=== PATIENT | female | born 1960 | race Caucasian/White ===

== ENCOUNTER 2017-07-24 11:18 | Emergency (ER) | payer OTHER ==
[2017-07-24 11:36] VITALS: BP 145/75
[2017-07-24] MEDS ORDERED: Ondansetron 4 MG/2 ML SDV IVPUSH ONE (11:52)
[2017-07-24] MEDS ORDERED: Ketorolac 30 MG/ML SDV IVPUSH ONE (11:52)
[2017-07-24] MEDS ORDERED: Sodium Chloride 0.9% 1,000 ML IV ONE (11:52)
--- NOTE | 2017-07-24 11:56 | EDM.PDOC ---
ED HPI GENERAL MEDICAL PROBLEM - General Chief Complaint: Abdominal Pain Stated Complaint: LOW ABDOMINAL PAIN Time Seen by Provider: 07/24/17 11:38 Source of Information: Reports: Patient History Limitations: Reports: No Limitations - History of Present Illness INITIAL COMMENTS - FREE TEXT/NARRATIVE: The patient is a 57-year-old female with a history of prior irritable bowel syndrome and diverticulitis who presents with abdominal pain. She states that it started a couple of days ago. Pain is located in her lower abdomen. It is like sharp pressure. It radiates down into her groin area. It is worse with movement. Better with rest. She's had nausea. No vomiting. Decreased oral intake for the past day or 2 due to nausea and pain. No fever. She did have a bowel movement yesterday that was normal. No dysuria or hematuria. No vaginal discharge. No additional complaint. Took aspirin this morning, no other meds. Has had surgery for ovarian cysts 40 years ago but does still have her ovaries. Bilateral Lower Abdomen Pain Score (Numeric/FACES): 8 - Related Data Allergies Allergy/AdvReac Type Severity Reaction Status Date / Time lidocaine Allergy Swelling Verified 07/24/17 11:24 Home Meds: Home Meds Aspirin [Ecotrin] 325 mg PO DAILY 07/24/17 [History] Ciprofloxacin [Ciprofloxacin HCl] 500 mg PO BID #20 tablet 07/24/17 [Rx] Levothyroxine [Synthroid] 88 mcg PO ACBREAKFAST 07/24/17 [History] Omeprazole 20 mg PO DAILY 07/24/17 [History] Ondansetron [Zofran ODT] 4 mg PO Q6H PRN #15 tab.dis 07/24/17 [Rx] Venlafaxine [Effexor] 75 mg PO DAILY 07/24/17 [History] metroNIDAZOLE [Flagyl] 500 mg PO Q8H #30 tablet 07/24/17 [Rx] oxyCODONE HCl/Acetaminophen [Percocet 5-325 mg Tablet] 1 each PO QID PRN #20 tablet 07/24/17 [Rx] Past Medical History HEENT History: Reports: Impaired Vision Other HEENT History: wears corrective lenses Cardiovascular History: Reports: Hypertension Gastrointestinal History: Reports: Other (See Below) Other Gastrointestinal History: diverticulitis [employer] History: Reports: Other (See Below) Other OB/BYN History: ovarian cyst removal Musculoskeletal History: Reports: Fracture, Osteoarthritis Endocrine/Metabolic History: Reports: Hypothyroidism - Past Surgical History HEENT Surgical History: Reports: None GI Surgical History: Reports: None Musculoskeletal Surgical History: Reports: Other (See Below) Other Musculoskeletal Surgeries/Procedures:: fractured ankle repair Social & Family History - Tobacco Use Smoking Status *Q: Former Smoker Used Tobacco, but Quit: Yes Month Tobacco Last Used: 17 years ago Second Hand Smoke Exposure: No - Caffeine Use Caffeine Use: Reports: Soda - Recreational Drug Use Recreational Drug Use: No ED ROS GENERAL - Review of Systems Review Of Systems: See Below Constitutional: Denies: Fever HEENT: Reports: No Symptoms Respiratory: Denies: Shortness of Breath Cardiovascular: Reports: No Symptoms Endocrine: Reports: No Symptoms GI/Abdominal: Reports: Abdominal Pain : Denies: Dysuria, Flank Pain, Hematuria Musculoskeletal: Reports: No Symptoms Skin: Reports: No Symptoms Neurological: Reports: No Symptoms Psychiatric: Reports: No Symptoms Hematologic/Lymphatic: Reports: No Symptoms ED EXAM, GI/ABD - Physical Exam Exam: See Below Exam Limited By: No Limitations General Appearance: Alert, WD/WN, No Apparent Distress Eyes: Bilateral: Normal Appearance Ears: Normal External Exam Nose: Normal Inspection Throat/Mouth: Normal Inspection, Normal Oropharynx Head: Atraumatic, Normocephalic Neck: Normal Inspection, Supple, Non-Tender, Full Range of Motion Respiratory/Chest: No Respiratory Distress, Lungs Clear, Normal Breath Sounds Cardiovascular: Normal Peripheral Pulses, Regular Rate, Rhythm, No Murmur, Tachycardia GI/Abdominal Exam: Soft, Other (Diffuse lower abdominal tenderness, most in left lower quadrant, no rebound or guarding. No upper abdominal tenderness) Back Exam: No: CVA Tenderness (L), CVA Tenderness (R) Neurological: Alert, Oriented, Normal Cognition Psychiatric: Normal Affect, Normal Mood Skin Exam: Warm, Dry, Intact, Normal Color, No Rash Course - Vital Signs Last Recorded V/S: Last Vital Signs Temp 36.1 C 07/24/17 11:24 Pulse 105 H 07/24/17 11:24 Resp 20 07/24/17 11:24 BP 145/75 H 07/24/17 11:24 Pulse Ox 97 07/24/17 11:24 - Orders/Labs/Meds Orders: Active Orders 24 hr Category Date Time Status Levofloxacin/Dextrose 5%-Water [Levaquin in D5W 750 MG/ Med 07/24/17 13:24 Active 150 ML] 750 mg Premix Bag 1 bag IV ONETIME Sodium Chloride 0.9% [Saline Flush] Med 07/24/17 12:21 Active 10 ml FLUSH ONETIME PRN metroNIDAZOLE/Normal Saline [Flagyl 500 MG in NS 100 ML Med 07/24/17 13:24 Active ] 500 mg Premix Bag 1 bag IV ONETIME Medication Orders Levofloxacin/Dextrose 750 mg/ (Premix) 150 mls @ 100 mls/hr IV ONETIME ONE Stop: 07/24/17 14:53 Last Admin: 07/24/17 13:37 Dose: 100 mls/hr Metronidazole 500 mg/ Premix 100 mls @ 100 mls/hr IV ONETIME ONE Stop: 07/24/17 14:23 Last Admin: 07/24/17 13:37 Dose: 100 mls/hr Sodium Chloride (Saline Flush) 10 ml FLUSH ONETIME PRN PRN Reason: IV FLUSH Last Admin: 07/24/17 12:31 Dose: 10 ml Labs: Laboratory Tests 07/24/17 07/24/17 07/24/17 Range/Units 12:05 12:05 13:36 WBC 14.88 H (3.98-10.04) K/mm3 RBC 4.18 (3.98-5.22) M/mm3 Hgb 12.7 (11.2-15.7) gm/L Hct 37.9 (34.1-44.9) % MCV 90.7 (79.4-94.8) fl MCH 30.4 (25.6-32.2) pg MCHC 33.5 (32.2-35.5) g/dl RDW Std Deviation 43.6 (36.4-46.3) fL Plt Count 346 (182-369) K/mm3 MPV 9.3 L (9.4-12.3) fl Neut % (Auto) 82.4 H (34.0-71.1) % Lymph % (Auto) 9.1 L (19.3-51.7) % [place] % (Auto) 7.9 (4.7-12.5) % Eos % (Auto) 0.3 L (0.7-5.8) Baso % (Auto) 0.1 (0.1-1.2) % Neut # (Auto) 12.28 H (1.56-6.13) K/mm3 Lymph # (Auto) 1.35 (1.18-3.74) K/mm3 [place] # (Auto) 1.17 H (0.24-0.36) K/mm3 Eos # (Auto) 0.04 (0.04-0.36) K/mm3 Baso # (Auto) 0.01 (0.01-0.08) K/mm3 Manual Slide Review Abnormal smear Sodium 137 (136-145) mEq/L Potassium 3.9 (3.5-5.1) mEq/L Chloride 99 (98-107) mEq/L Carbon Dioxide 26 (21-32) mEq/L Anion Gap 15.9 H (5-15) BUN 16 (7-18) mg/dL Creatinine 1.3 H (0.55-1.02) mg/dL Est Cr Clr Drug Dosing 49.30 mL/min Estimated GFR (MDRD) 42 (>60) mL/min BUN/Creatinine Ratio 12.3 L (14-18) Glucose 108 H (74-106) mg/dL Calcium 9.6 (8.5-10.1) mg/dL Total Bilirubin 1.2 H (0.2-1.0) mg/dL AST 15 (15-37) U/L ALT 16 (14-59) U/L Alkaline Phosphatase 81 (46-116) U/L Total Protein 8.2 (6.4-8.2) g/dl Albumin 4.1 (3.4-5.0) g/dl Globulin 4.1 gm/dL Albumin/Globulin Ratio 1.0 (1-2) Lipase 115 (73-393) U/L Urine Color Yellow (Yellow) Urine Appearance Clear (Clear) Urine pH 5.5 (5.0-8.0) Ur Specific [place] 1.010 (1.005-1.030) Urine Protein 1+ H (Negative) Urine Glucose (UA) Negative (Negative) Urine Ketones Negative (Negative) Urine Occult Blood 1+ H (Negative) Urine Nitrite Negative (Negative) Urine Bilirubin Negative (Negative) Urine Urobilinogen 0.2 (0.2-1.0) Ur Leukocyte Esterase Negative (Negative) Urine RBC 0-5 (0-5) /hpf Urine WBC Not seen (0-5) /hpf Ur Epithelial Cells 0-5 (0-5) /hpf Urine Bacteria Few (FEW) /hpf Hyaline Casts 0-5 (0-5) /lpf Urine Mucus Not seen (FEW) /hpf Meds: Medications Generic Name Dose Route Start Last Admin Trade Name Pardeepq PRN Reason Stop Dose Admin Levofloxacin/Dextrose 750 mg/ 150 mls @ 100 mls/hr 07/24/17 13:24 07/24/17 13 :37 Premix IV 07/24/17 14:53 100 mls/hr ONETIME ONE Administration Metronidazole 500 mg/ Premix 100 mls @ 100 mls/hr 07/24/17 13:24 07/24/17 13: 37 IV 07/24/17 14:23 100 mls/hr ONETIME ONE Administration Sodium Chloride 10 ml 07/24/17 12:21 07/24/17 12:31 Saline Flush FLUSH 10 ml ONETIME PRN Administration IV FLUSH Discontinued Medications Generic Name Dose Route Start Last Admin Trade Name Pardeepq PRN Reason Stop Dose Admin Sodium Chloride 1,000 mls @ 1,000 mls/hr 07/24/17 11:52 07/24/17 12:12 Normal Saline IV 07/24/17 12:51 1,000 mls/hr ONETIME ONE Administration Iopamidol 150 ml 07/24/17 12:21 07/24/17 12:31 Isovue-300 (61%) IVPUSH 07/24/17 12:22 125 ml ONETIME ONE Administration Ketorolac Tromethamine 30 mg 07/24/17 11:52 07/24/17 12:12 Toradol IVPUSH 07/24/17 11:53 30 mg ONETIME ONE Administration Ondansetron HCl 4 mg 07/24/17 11:52 07/24/17 12:12 Zofran IVPUSH 07/24/17 11:53 4 mg ONETIME ONE Administration - Re-Assessments/Exams Free Text/Narrative Re-Assessment/Exam: 07/24/17 14:16 White blood cell count mildly elevated. CT scan shows uncomplicated diverticulitis. Given Cipro/Flagyl here. Normal vital signs, tolerating by mouth , pain well controlled, okay for outpatient treatment. Discussed return precautions. Departure - Departure Time of Disposition: 14:17 Disposition: Home, Self-Care 01 Clinical Impression: Diverticulitis large intestine Qualifiers: Diverticulitis bleeding: without bleeding Diverticulitis complication: without perforation or abscess Qualified Code(s): K57.32 - Diverticulitis of large intestine without perforation or abscess without bleeding - Discharge Information Prescriptions: Ciprofloxacin [Ciprofloxacin HCl] 500 mg PO BID #20 tablet metroNIDAZOLE [Flagyl] 500 mg PO Q8H #30 tablet Ondansetron [Zofran ODT] 4 mg PO Q6H PRN #15 tab.dis PRN Reason: Nausea oxyCODONE HCl/Acetaminophen [Percocet 5-325 mg Tablet] 1 each PO QID PRN #20 tablet PRN Reason: Pain Instructions: Diverticulitis, [id number] Referrals: PCP,Not In Area [Primary Care Provider] - Forms: ED Department Discharge - My Orders Last 24 Hours: My Active Orders 07/24/17 12:21 Sodium Chloride 0.9% [Saline Flush] 10 ml FLUSH ONETIME PRN 07/24/17 13:24 Levofloxacin/Dextrose 5%-Water [Levaquin in D5W 750 MG/150 ML] 750 mg Premix Bag 1 bag IV ONETIME metroNIDAZOLE/Normal Saline [Flagyl 500 MG in NS 100 ML] 500 mg Premix Bag 1 bag IV ONETIME - Assessment/Plan Last 24 Hours: My Active Orders 07/24/17 12:21 Sodium Chloride 0.9% [Saline Flush] 10 ml FLUSH ONETIME PRN 07/24/17 13:24 Levofloxacin/Dextrose 5%-Water [Levaquin in D5W 750 MG/150 ML] 750 mg Premix Bag 1 bag IV ONETIME metroNIDAZOLE/Normal Saline [Flagyl 500 MG in NS 100 ML] 500 mg Premix Bag 1 bag IV ONETIME
[2017-07-24] MEDS ORDERED: Iopamidol 612 MG/ML 150 ML Bottle IVPUSH ONE (12:21)
[2017-07-24] MEDS ORDERED: Sodium Chloride 0.9% 10 ML Syringe FLUSH PRN (12:21)
--- NOTE | 2017-07-24 12:55 | CT ---
CT abdomen and pelvis Technique: Multiple axial sections were obtained from above the dome of the diaphragm inferiorly through the pubic symphysis. Intravenous contrast was utilized. No oral contrast has been given. Delayed images were obtained through the bladder. Comparison: No previous abdominal imaging. Findings: Mild inflammatory change is seen around a portion of the sigmoid colon. Diverticuli are seen within this region and findings are felt compatible with diverticulitis. No fluid collections are seen to indicate abscess is seen at this time. Visualized lung bases are clear. Liver shows no focal abnormality. Gallbladder somewhat distended most likely representing patient's state of fasting. Spleen appears within normal limits. Adrenal glands show no nodule. Pancreas is within normal limits. Kidneys show symmetric contrast enhancement. Small cyst is identified within the left kidney measuring approximately 1.7 cm in size. Kidneys otherwise appear within normal limits. Aorta shows no aneurysmal dilatation. No retroperitoneal adenopathy or mesenteric abnormalities are seen. Delayed images shows contrast within the distal ureters and within the bladder. Bone window settings were reviewed which shows minimal degenerative change scattered within the spine. Impression: 1. Findings compatible with mild diverticulitis within the sigmoid colon. No fluid collections of abscess are seen at this time. 2. Other incidental findings as described above. Diagnostic code #3
[2017-07-24] MEDS ORDERED: metroNIDAZOLE/Normal Saline 500 MG in Premix Bag 1 BAG IV ONE (13:24)
[2017-07-24] MEDS ORDERED: Levofloxacin/Dextrose 5%-Water 750 MG in Premix Bag 1 BAG IV ONE (13:24)
== END 2017-07-24 14:58 | disposition home or self-care (01) ==
LOC: JD.ED 11:18
DX: K57.32 Diverticulitis of large intestine without perforation or abscess without bleeding (principal); I10 Essential (primary) hypertension; M19.90 Unspecified osteoarthritis, unspecified site; E03.9 Hypothyroidism, unspecified; Z79.82 Long term (current) use of aspirin; Z88.8 Allergy status to other drugs, medicaments and biological substances; Z79.899 Other long term (current) drug therapy; Z87.891 Personal history of nicotine dependence
CPT/HCPCS: 36415; 74177; 80053; 81001; 83690; 85025; 96361; 96365; 96368; 96375; 99284; J1885; J1956; J2405; J7040; J7050; Q9967